=== PATIENT | female | born 1960 | race African-American/Black ===

== ENCOUNTER 2021-01-22 15:29 | Emergency (ER) | payer MEDICAID ==
[~2021-01-22] VITALS: Ht 165.1 cm; Wt 52.0 kg
[2021-01-22 15:32] VITALS: BP 104/63
== END 2021-01-22 16:25 | disposition left against medical advice (07) ==
LOC: ER 15:29
DX: R56.9 Unspecified convulsions (principal); Z53.21 Procedure and treatment not carried out due to patient leaving prior to being seen by health care provider
CPT/HCPCS: 99283

== ENCOUNTER 2023-11-13 08:03 | Inpatient (IN) | payer MEDICAID ==
[~2023-11-13] VITALS: Ht 172.7 cm; Wt 42.2 kg
[2023-11-13 09:05] LABS: DIFFERENTIAL COMMENT 1; HEMATOCRIT. 44.9 % (36.0-48.0); HEMOGLOBIN. 14.2 g/dL (12.0-16.0); MEAN CORPUSCULAR HEMOGLOBIN 27.2 pg (28.0-32.0); MEAN CORPUSCULAR HGB CONC 31.6 g/dL (31.0-37.0); MEAN PLATELET VOLUME 6.3 fl (7.4-10.4); PLATELET 474 x1000/uL (130-400); RED BLOOD CELL COUNT 5.22 mill/uL (4.2-5.4); RED CELL DISTRIBUTION WIDTH 14.6 % (11.6-14.6); WHITE BLOOD COUNT 22.8 x1000/uL (4.5-11.0)
[2023-11-13 09:14] LABS: CHLORIDE 92 mEq/L (98-107); INR 1.3; POTASSIUM 4.5 mEq/L (3.5-5.1); PROTHROMBIN TIME 14.2 sec (9.6-11.0); SODIUM 129 mEq/L (136-145)
[2023-11-13 09:15] LABS: CALCIUM 10.8 mg/dL (8.7-10.4); CARBON DIOXIDE 30 mEq/L (21-32)
[2023-11-13 09:20] LABS: CREATININE 0.6 mg/dL (0.6-1.0); GLUCOSE 121 mg/dL (70-105); UREA NITROGEN BLOOD 10 mg/dL (9-23)
[2023-11-13 09:32] LABS: LACTIC ACID 3.5 mmol/L (0.4-2.0)
[2023-11-13] MEDS: SODIUM CHLORIDE 0.9% 1,000 ML IV ONE (09:42)
[2023-11-13] MEDS: PIPERACILLIN/TAZO 3.375G/50ML 50 ML IV ONE (09:43)
[2023-11-13] MEDS: VANCOMYCIN 1G PREMIX 200 ML IV ONE (09:43)
[2023-11-13 10:30] LABS: PLATELET ESTIMATE INCREASED
[2023-11-13] MEDS: MORPHINE SULFATE 4 MG/ML INJ (FOR IV/IM USE) IV ONE (12:40)
[2023-11-13 13:09] LABS: TROPONIN I HIGH SENSITIVITY 1378 ng/L (3.0-34)
[2023-11-13] MEDS ORDERED: GUAIFENESIN 200MG/10ML SUGAR FREE UDC PO PRN (18:45)
[2023-11-13] MEDS ORDERED: MAGNESIUM/ALUMINUM HYDROXIDE/SIMETHICONE 30ML UDC PO PRN (18:45)
[2023-11-13] MEDS ORDERED: CLONIDINE 0.1MG TABLET PO PRN (18:45)
[2023-11-13] MEDS ORDERED: DOCUSATE SODIUM 100MG CAPSULE PO PRN (18:45)
[2023-11-13] MEDS ORDERED: ACETAMINOPHEN 325MG TABLET PO PRN ×2 (18:45)
[2023-11-13] MEDS ORDERED: IPRATROPIUM/ALBUTEROL 0.5-3(2.5)MG/3ML NEB HHN PRN (18:45)
[2023-11-13] MEDS ORDERED: ONDANSETRON HCL 4MG/2ML INJ IV PRN (18:45)
[2023-11-13] MEDS: IPRATROPIUM/ALBUTEROL 0.5-3(2.5)MG/3ML NEB HHN SCH (19:37)
[2023-11-13 19:38] VITALS: PULSE 120; RESP 22; O2SAT 96
[2023-11-13] MEDS ORDERED: ENOXAPARIN 60MG/0.6ML SYR SUBCUT SCH (20:00)
[2023-11-13] MEDS ORDERED: ENOXAPARIN 40MG/0.4ML SYR SUBCUT SCH (21:00)
[2023-11-13] MEDS: PIPERACILLIN/TAZO 3.375G/50ML 50 ML IV SCH (21:17)
[2023-11-13] MEDS: METHYLPREDNISOLONE SOD SUCC 40MG/ML (ACT-O-VIAL) IV NR (21:18)
[2023-11-13] MEDS: ENOXAPARIN 60MG/0.6ML SYR SUBCUT NR (21:20)
[2023-11-13] MEDS ORDERED: NALOXONE HCL 0.4MG/ML VIAL IV PRN (21:30)
[2023-11-13 21:47] VITALS: BP 80/46; PULSE 127; RESP 26
[2023-11-13 21:51] VITALS: BP 61/51; PULSE 128; RESP 26
[2023-11-13 22:00] VITALS: BP 87/54; PULSE 126; RESP 25
[2023-11-13] MEDS: DEXT 5%/LACTATED RINGERS 1,000 ML IV SCH (22:06)
[2023-11-13 23:05] LABS: BG BASE EXCESS -3.3 mmol/L (-2.0-3.0); BG CARBOXYHEMOGLOBIN 0.3 % (0.5-1.5); BG DEOXYHEMOGLOBIN 0.1 % (0.0-5.0); BG HCO3 ACT 22.4 mmol/L (21.0-28.0); BG METHEMOGLOBIN 0.3 % (0.5-1.5); BG OXYGEN SATURATION 99.9 % (94.0-98.0); BG OXYHEMOGLOBIN 99.3 % (94.0-98.0); BG PCO2 42.5 mmHg (32.0-45.0); BG PH 7.339 (7.350-7.450); BG PO2 240.7 mmHg (83.0-108.0); BG SAMPLE SITE LEFT RADIAL; BG TOTAL HEMOGLOBIN 13.9 g/dL (12.0-16.0); BG VENT MODE MASK - NRB
[2023-11-13 23:21] VITALS: BP 90/60; PULSE 128; RESP 16; TEMP 36.5292
[2023-11-14] VITALS (16 sets, daily range): BP systolic 45–100; BP diastolic 23–70; PULSE 114–143; RESP 12–28; TEMP 36.114–36.33624; O2SAT 89–100
[2023-11-14] MEDS: FAMOTIDINE 20MG/2ML VIAL IV SCH (00:22)
[2023-11-14] MEDS: SODIUM CHLORIDE 0.9% 500 ML IV ONE ×2 (00:22→09:00)
[2023-11-14] MEDS: AZITHROMYCIN 500MG/250ML 250 ML IV SCH ×2 (00:22→18:51)
[2023-11-14] MEDS: VANCOMYCIN 750MG/150ML (BAXTER) IV SCH (01:51)
[2023-11-14 03:57] LABS: TROPONIN I HIGH SENSITIVITY 2341 ng/L (3.0-34)
[2023-11-14 04:23] LABS: CREATINE KINASE MB FRACTION 15.1 ng/mL (0.5-3.6)
[2023-11-14 08:23] LABS: CLARITY URINE CLOUDY (CLEAR); COLOR URINE YELLOW (YELLOW); GLUCOSE URINE NEGATIVE (NEGATIVE); KETONES URINE NEGATIVE (NEGATIVE); LEUKOCYTE ESTERASE URINE NEGATIVE (NEGATIVE); NITRITE URINE NEGATIVE (NEGATIVE); OCCULT BLOOD URINE 3+ (NEGATIVE); PROTEIN URINE 1+ (NEGATIVE); SPECIFIC GRAVITY URINE 1.014 (1.005-1.030); UROBILINOGEN URINE 0.2 E.U./dL (0.2-1.0)
[2023-11-14 08:32] LABS: RBC URINE 25-50 /hpf (0-2)
[2023-11-14 08:33] LABS: BACTERIA URINE 1+; SQUAMOUS EPITHELIAL CELL URINE 2+ /lpf (RARE/1+); YEAST URINE NONE SEEN
[2023-11-14] MEDS: ENOXAPARIN 60MG/0.6ML SYR SUBCUT SCH (09:01)
[2023-11-14] MEDS: HYDROCORTISONE SOD SUCCINATE 100 MG/2 ML VIAL IV NR (13:21)
[2023-11-14] MEDS: VANCOMYCIN 500MG/100ML IV SCH (13:22)
[2023-11-14] MEDS: SCOPOLAMINE HYDROBROMIDE PATCH 72HR TD SCH (14:46)
[2023-11-14] MEDS: LACTATED RINGERS 1,000 ML IV SCH (14:56)
[2023-11-14] MEDS: MORPHINE SULFATE 2 MG/ML INJ (NOT FOR IM USE) IV PRN (20:04)
[2023-11-14] MEDS: HYDROCODONE/ACETAMINOPHEN 5/325MG TABLET PO PRN (22:11)
[2023-11-15] VITALS (9 sets, daily range): BP systolic 39–118; BP diastolic 26–105; PULSE 27–156; RESP 0–28; TEMP 36.114–36.22512; O2SAT 85–99
[2023-11-15] MEDS: ENOXAPARIN 40MG/0.4ML SYR SUBCUT SCH (08:38)
[2023-11-15] MEDS: MORPHINE SULFATE 2 MG/ML INJ (NOT FOR IM USE) IV PRN (08:45)
[2023-11-15] MEDS ORDERED: ONDANSETRON HCL 4MG/2ML INJ IV PRN (09:00)
[2023-11-15] MEDS ORDERED: MORPHINE SULFATE 250 MG in DEXT 5% WATER 225 ML IV PRN (09:00)
[2023-11-15] MEDS ORDERED: LORAZEPAM 2MG/ML INJ IV PRN (09:00)
== END 2023-11-15 18:55 | DRG 720 ==
LOC: ER 08:25 → 3WST 12:28 → EDBEDREQTM 12:37 → EDBEDREQ 12:37 → 5EST 23:29
PROVIDERS: ADMIT Internal Medicine; ATTEND Internal Medicine
PROC: 5A0935A Assistance with Respiratory Ventilation, Less than 24 Consecutive Hours, High Flow/Velocity Cannula (ICD-10-PCS; principal; 2023-11-14)
DX: A41.9 Sepsis, unspecified organism (principal); J96.01 Acute respiratory failure with hypoxia; J69.0 Pneumonitis due to inhalation of food and vomit; I21.4 Non-ST elevation (NSTEMI) myocardial infarction; E46 Unspecified protein-calorie malnutrition; E87.20 Acidosis, unspecified; R64 Cachexia; J15.69 Pneumonia due to other Gram-negative bacteria; J84.9 Interstitial pulmonary disease, unspecified; C34.91 Malignant neoplasm of unspecified part of right bronchus or lung; I46.9 Cardiac arrest, cause unspecified; Z66 Do not resuscitate; Z20.822 Contact with and (suspected) exposure to COVID-19; J44.9 Chronic obstructive pulmonary disease, unspecified; E87.1 Hypo-osmolality and hyponatremia; F17.210 Nicotine dependence, cigarettes, uncomplicated; R65.20 Severe sepsis without septic shock; I51.7 Cardiomegaly; R62.7 Adult failure to thrive; Z68.1 Body mass index [BMI] 19.9 or less, adult; Z85.05 Personal history of malignant neoplasm of liver; Z85.118 Personal history of other malignant neoplasm of bronchus and lung; Z88.2 Allergy status to sulfonamides; Z92.21 Personal history of antineoplastic chemotherapy; Z88.5 Allergy status to narcotic agent
CPT/HCPCS: 36415; 36600; 71045; 80048; 81003; 82375; 82550; 82553; 82805; 83605; 84145; 84484; 85025; 85379; 87426; 93005; 94640; 99291; J0456; J1650; J1720; J2270; J2543; J2920; J3370; J3490; J7030; J7060; J7120; J7121